=== PATIENT | female | born 1955 | race Two or more races ===

== ENCOUNTER 2017-11-29 10:37 | Day surgery (SDC) | payer OTHER ==
[~2017-11-29] VITALS: Ht 165.1 cm; Wt 80.3 kg
[2017-11-29] MEDS ORDERED: fentaNYL 0.05 MG/ML VIAL ONE (12:04)
[2017-11-29] MEDS ORDERED: MIDAZOLAM 2 MG/2 ML VIAL ONE (12:04)
[2017-11-29] MEDS ORDERED: MIDAZOLAM 2 MG/2 ML VIAL IVP ONE (12:20)
== END 2017-11-29 12:56 | disposition home or self-care (01) ==
LOC: MDS 10:37 → MMU 10:37 → MDS 12:56
PROVIDERS: ATTEND Internal Medicine Gastroenterology
DX: K29.70 Gastritis, unspecified, without bleeding (principal); K59.00 Constipation, unspecified; I10 Essential (primary) hypertension; E11.9 Type 2 diabetes mellitus without complications; E66.9 Obesity, unspecified; Z98.890 Other specified postprocedural states; Z79.82 Long term (current) use of aspirin; Z79.84 Long term (current) use of oral hypoglycemic drugs; Z68.32 Body mass index [BMI] 32.0-32.9, adult; Z79.899 Other long term (current) drug therapy
CPT/HCPCS: 36415; 43239; 82948; 86677; J2250; J3010